=== PATIENT | female | born 2005 | race Two or more races ===

== ENCOUNTER 2024-02-06 13:55 | Emergency (ER) | payer MEDICAID, OTHER ==
[~2024-02-06] VITALS: Ht 144.8 cm; Wt 41.3 kg
[2024-02-06 14:59] VITALS: BP 118/89; PULSE 95; RESP 16; TEMP 98.6; O2SAT 96
[2024-02-06] MEDS ORDERED: ALBU108A5 IN (15:33)
[2024-02-06] MEDS ORDERED: IBUP-1454 PO (15:33)
[2024-02-06] MEDS ORDERED: PROM1SOL4 PO (15:33)
[2024-02-06] MEDS ORDERED: BENZ100C97 PO (15:33)
== END 2024-02-06 15:34 | disposition home or self-care (01) ==
LOC: ER 13:55
DX: J40 Bronchitis, not specified as acute or chronic (principal)